=== PATIENT | female | born 1940 | race Caucasian/White ===

== ENCOUNTER 2016-04-18 14:20 | Inpatient (IN) | payer MEDICARE ==
[~2016-04-18] VITALS: Ht 162.6 cm; Wt 74.1 kg
[~2016-04-18 14:20] MED LIST: ALBU1AER5 INH; ASPI81TA81 PO; LOSA100T3 PO; POTA10TA8 PO; PRAV20TA2 PO; PRESCAP5 PO; SYST0.4D2; TIOT1AER2 INH; TRAV0.00 EACH EYE
[2016-04-19] MEDS ORDERED: DILT360C12 PO (10:45)
[2016-04-19] MEDS ORDERED: ZETI10TA5 PO (10:45)
[2016-04-26] VITALS (7 sets, daily range): BP systolic 82–155; BP diastolic 22–70; PULSE 50–76; RESP 18–24; TEMP 97.5–98.1; O2SAT 92–97
[2016-04-26] MEDS ORDERED: BUPIVACAINE LIPOSO PF 1.3% INJ 20 ML, DEXAMETHASONE INJ 4 MG in SODIUM CHLORIDE 0.9% IN... PERIART SCH (07:45)
[2016-04-26] MEDS: LACTATED RINGER'S 1000 ML IV SCH (08:00)
[2016-04-26] MEDS: SODIUM CHLORID 0.9% 500 ML IV SCH (08:00)
[2016-04-26] MEDS ORDERED: ceFAZolin 2 GM PREMIX 50 ML ONE (08:01)
[2016-04-26] MEDS ORDERED: APREPITANT 40 MG CAP ONE (08:03)
[2016-04-26] MEDS ORDERED: FAMOTIDINE 20 MG/2 ML VIAL ONE (08:03)
[2016-04-26] MEDS ORDERED: ARTIFICIAL TEARS OPTH OINT 3.5 APPLIC/3.5 GM TUBO ONE (08:03)
[2016-04-26] MEDS ORDERED: MIDAZOLAM HCL 2 MG/2 ML VIAL ONE (08:03)
[2016-04-26] MEDS ORDERED: INSULIN HUMAN REGULAR 1,000 UNITS/10 ML VIAL SQ PRN (08:30)
[2016-04-26] MEDS ORDERED: ONDANSETRON HCL 4 MG/2 ML VIAL IV PUSH ONE (09:46)
[2016-04-26] MEDS ORDERED: LACTATED RINGER'S 1000 ML INJ 1,000 ML IV ONE (09:46)
[2016-04-26] MEDS ORDERED: ePHEDrine/NS 25 MG/5 ML SYR IV ONE (09:46)
[2016-04-26] MEDS ORDERED: NORMOSOL R INJ 1,000 ML IV ONE (09:46)
[2016-04-26] MEDS ORDERED: NEOSTIGMINE 3 MG/3 ML SYR IV ONE (09:46)
[2016-04-26] MEDS ORDERED: SODIUM CHLORID 0.9% 500 ML INJ 500 ML IV ONE (09:46)
[2016-04-26] MEDS ORDERED: PROPOFOL 200 MG/20 ML AMP IV ONE (09:46)
[2016-04-26] MEDS ORDERED: SODIUM CHLORIDE 0.9% FLUSH 5 ML FLUSH IV FLUSH PRN (10:30)
[2016-04-26] MEDS ORDERED: ACETAMINOPHEN/HYDROcodone 325 MG/5 MG TAB PO PRN (10:30)
[2016-04-26] MEDS ORDERED: Post-op Orders (for Pharmacy) MISC OTHER ONE (10:30)
[2016-04-26] MEDS ORDERED: ACETAMINOPHEN 325 MG TAB PO PRN (10:30)
[2016-04-26] MEDS ORDERED: RESP: ALBUTEROL 2.5 MG/3 ML NEB (PRN) NEB (10:30)
[2016-04-26] MEDS ORDERED: MAGNESIUM HYDROXIDE SUSP 30 ML CUP PO PRN (10:30)
[2016-04-26] MEDS ORDERED: ONDANSETRON HCL 4 MG/2 ML VIAL IV PUSH PRN (10:30)
[2016-04-26] MEDS ORDERED: DO NOT ADM ANY ANTICOAGULANT DRUGS XX PRN (10:39)
[2016-04-26] MEDS ORDERED: fentaNYL CITRATE 250 MCG/5 ML AMP ONE (10:42)
[2016-04-26] MEDS ORDERED: *morphine SULFATE 8 MG/ML PERIprocedure ONLY ONE (10:47)
[2016-04-26] MEDS ORDERED: ACETAMINOPHEN 1000 MG/100 ML VIAL IV SCH (11:00)
[2016-04-26] MEDS ORDERED: *RESP: ALBUTEROL 2.5 MG/3 ML NEB (PRN) PERIprocedural Use ONLY NEB ONE (11:01)
[2016-04-26] MEDS: KETOROLAC TROMETHAMINE 30 MG/ML (IVP) VIAL IV PUSH SCH ×3 (11:10→23:39)
--- NOTE | 2016-04-26 11:36 | RADRPT ---
EXAM DATE/TIME: 04/26/2016 10:50 [facility] COMPARISON: CT NEEDLE BIOPSY LUNG, RIGHT, February 16, 2016, 9:00. INDICATIONS : Post right thorocotomy. MEDICAL HISTORY : None. SURGICAL HISTORY : Right thoracotomy ENCOUNTER: Initial ACUITY: 1 day PAIN SCORE: Non-responsive. LOCATION: Right chest FINDINGS: Chest tube is in place on the right without pneumothorax. Minimal bibasilar parenchymal changes are noted. Heart is minimally enlarged. Mild subcutaneous emphysema is present over the right chest. CONCLUSION: There is no pneumothorax following thoracotomy. Jose Rand MD FACR on April 26, 2016 at 11:15 Board Certified Radiologist. This report was verified electronically.
--- NOTE | 2016-04-26 11:49 | PD.OP ---
cc: Rl Cid MD; Lizzie Mims MD; Yasmine Dickey MD; Geno Matute MD Operative Report Date of Surgery: Apr 26, 2016 Preoperative Diagnosis: Postoperative Diagnosis: Procedure: 1. Robotic Right Upper Lobe Mass Resection 2. Intercostal Nerve Block . Surgeon: Geno Matute Plant Physiologist(s): Claribel Garcia Operation and Findings: PREOPERATIVE DIAGNOSIS 1. Right Upper Lobe Lung Cancer 2. Severe COPD 3. Bullous Emphysema POSTOPERATIVE DIAGNOSIS same PROCEDURES 1. Robotic Right Upper Lobe Mass Resection 2. Intercostal Nerve Block SURGEON Geno Matute MD JAZZ SINGER JUAN J Eldridge ANESTHESIA General endotracheal. EMERGENCY MANAGER TIM Fontanez MD OPERATIVE TIME Please see record. COMPLICATIONS None. INDICATION FOR PROCEDURE The patient is a 76 yo lady with lung cancer and severe COPD presenting for sublobar resection given her severely compromised pulmonary function. DESCRIPTION OF PROCEDURE The patient was brought to the operating suite and placed in supine position. Following satisfactory induction of general endotracheal anesthesia, she was placed in the left lateral decubitus position. The right chest was then prepped and draped in the usual sterile fashion. Under direct vision, camera was introduced in the 8th ICS and insufflation was begun into the chest . Instrument arm 1& 2 were placed. Lesion was identified. The entire right lung was very emphysematous with diffuse bullous changes. Using peristrips, the lesion was isolated and resected. Specimen was bagged and removed from the chest. Again, the lung was very friable and very poor quality. Any manipulation was frought with parenchymal damage. With concern for creating unrepairable air- leaks, it was decided not to proceed with mediastinal and subcarinal lymph node dissection to avoid creating bronchopleural fistulae. A 24-Luxembourgish Tyrese drain was placed. Intercostal nerve block was performed at the level of the incision and 3 rib spaces above and below using Exparel with Decadron solution. Wounds were closed with 2-0, 3-0, and 4-0 Monocryl. The patient tolerated the procedure well and postoperatively went to recovery in stable condition. Geno Matute MD Apr 26, 2016 11:48
[2016-04-26] MEDS: ACETAMINOPHEN 1000 MG/100 ML VIAL IV SCH ×2 (13:39→20:33)
[2016-04-26] MEDS ORDERED: RESP: ALBUTEROL 2.5 MG/3 ML NEB (SCH) NEB (16:00)
[2016-04-26] MEDS ORDERED: TERBUTALINE INJ 1 MG/ML AMP SQ PRN (16:15)
[2016-04-26] MEDS ORDERED: PHENYLEPHRINE 40 MG/D5W 496 ML ADMIX IV SCH ×2 (16:15)
[2016-04-26] MEDS: ACETAMINOPHEN/HYDROcodone 325 MG/5 MG TAB PO PRN (16:48)
[2016-04-26] MEDS: DOCUSATE CALCIUM 240 MG CAP PO SCH (20:34)
[2016-04-26] MEDS: PANTOPRAZOLE SOD 40 MG DELAYED RELEASE TAB PO SCH (20:34)
[2016-04-26] MEDS: SODIUM CHLORIDE 0.9% FLUSH 5 ML FLUSH IV FLUSH SCH (20:35)
[2016-04-26] MEDS: RESP: ALBUTEROL 2.5 MG/IPRATROPIUM 0.5 MG NEB (SCH) NEB (20:49)
[2016-04-26] MEDS: LATANOPROST 0.005% OPHT SOLN 2.5 ML BTL EACH EYE SCH (20:53)
--- NOTE | 2016-04-26 22:12 | MB ---
cc: DARLEEN WEST DATE OF CONSULTATION 04/26/2016 REASON FOR CONSULTATION Postoperative pulmonary management status post wedge biopsy of lung mass. HISTORY OF THE PRESENT ILLNESS This is a 76-hour-old white female who has had a previous history for right upper lobe lung mass, had a CT biopsy following a PET scan which demonstrated uptake in the right upper lobe mass. /it was found to be a squamous cell carcinoma. The patient was sent for possible surgery but her pulmonary functions were borderline with an FEV-1 of under one liter. She was then advised to have a wedge resection of the density. The patient did undergo surgery today with wedge dissection of the right upper lobe lung mass and intercostal nerve block. She was placed in the intensive care unit on oxygen via nasal cannula at 4 liters. She is awake and cooperative, complains of little soreness in the chest, but not dyspneic at rest. PAST MEDICAL HISTORY The past history has included: 1. A history of hypertension. 2. History of glaucoma. 3. History of lipoma. 4. There is a history of abdominal aortic aneurysm. 5. Chronic vertigo with a TIA. PAST SURGICAL HISTORY Surgery includes: 1. Finger surgery. 2. Humeral surgery. 3. Cholecystectomy. 4. Lung biopsy. 5. Remote history of D & C. 6. Tonsillectomy. ALLERGIES INCLUDE PRAVASTATIN AND TIMOPTIC EYE DROPS. SOCIAL HISTORY Habits, the patient smoked cigarettes one-pack per day for over 20 years. No significant alcohol use. FAMILY HISTORY Significant for hypertension and father had a history of malignancy. REVIEW OF SYSTEMS The patient has had some weight gain. She has cough, wheezing, orthopnea. She has no leg swelling. She has joint pains of her extremities. Denies anxiety or depression. She has no history of any urinary symptoms. MEDICATIONS The med list included: 1. Pravastatin 40 mg at bedtime. 2. Spiriva two puffs daily. 3. Albuterol inhaler two puffs t.i.d. p.r.n. PHYSICAL EXAMINATION GENERAL: This elderly mild obese white female is alert and in no acute distress. VITAL SIGNS: Blood pressure 130/70, pulse is 74, respiratory rate 20, temperature 98.2. HEENT: Head is normocephalic. Pupils are reactive. Tongue is moist. Throat is injected. NECK: Supple. No bruits or thyroid enlargement. CHEST: Equal movements with distant breath sounds over the right mid and upper chest with occasionally wheezes bilaterally. HEART: Sounds are regular S1-S2. No murmur. No S3 gallop. ABDOMEN: Soft. Protuberant. No masses. No organomegaly. EXTREMITIES: No edema. Reflexes are 1+ with no gross motor deficits. NEUROLOGICAL: Cranial nerves are grossly intact. RECTAL: Examination is deferred. SKIN: No lesions. IMPRESSION 1. Status post wedge resection of right upper lobe squamous cell lung CA. 2. Bullous emphysema. 3. History of mixed hyperlipidemia. 4. History of glaucoma. 5. Hypertension. PLAN The patient will be placed on O2 at 4 liters. Maintain sats over 92. Nebulized DuoNeb solution added q.i.d. We will also get a chest x-ray in the a.m. The patient will be advised to use the incentive spirometer every two hours. Thank you Dr. Matute for this consultation. MD [facility]/DENY /5:44 PM /9:54 PM
[2016-04-27] VITALS (18 sets, daily range): BP systolic 115–149; BP diastolic 47–66; PULSE 63–98; RESP 20; TEMP 97.8–98.4; O2SAT 93–97
[2016-04-27] MEDS: SODIUM CHLORID 0.9% 500 ML IV SCH (00:40)
[2016-04-27] MEDS: ACETAMINOPHEN 1000 MG/100 ML VIAL IV SCH ×2 (02:45→09:04)
[2016-04-27] MEDS: KETOROLAC TROMETHAMINE 30 MG/ML (IVP) VIAL IV PUSH SCH (05:29)
--- NOTE | 2016-04-27 05:47 | RADRPT ---
EXAM DATE/TIME: 04/27/2016 04:18 [facility] COMPARISON: CHEST SINGLE AP, April 26, 2016, 10:50. INDICATIONS : Shortness of breath, possible pulmonary disease. MEDICAL HISTORY : None. SURGICAL HISTORY : Thoracotomy ENCOUNTER: Subsequent ACUITY: 2 days PAIN SCORE: 4/10 LOCATION: Right chest FINDINGS: There is a right chest tube in place. A pneumothorax is not seen. There is subcutaneous emphysema see n in the lower lateral right chest. There is patchy areas of consolidation in the lateral right upper lung and at the right base and to some degree at the left base. There is blunting of the left costop hrenic angle. The heart size is normal. There is a healed fracture deformity of the proximal left hum erus. CONCLUSION: 1. Right chest tube without a pneumothorax. 2. Patchy areas of consolidation at the lateral right upper lung, right base and to lesser degree lef t base. 3. Blunting of the left costophrenic angle related to a mild effusion. Bin Woo MD on April 27, 2016 at 5:44 Board Certified Radiologist. This report was verified electronically.
[2016-04-27 06:29] LABS: AUTOMATED NEUTROPHIL # 7.9 TH/MM3 (1.8-7.7); HEMATOCRIT 25.3 % (35.0-46.0); HEMO FLAGS DIFF FINAL; LYMPH % 9.1 % (9.0-44.0); LYMPHOCYTE # 0.9 TH/MM3 (1.0-4.8); MEAN CELL VOLUME 96.1 FL (80.0-100.0); MEAN CORPUSCULAR HEMOGLOBIN 33.6 PG (27.0-34.0); MONO % 6.9 % (0.0-8.0); PLATELET COUNT 163 TH/MM3 (150-450); RED BLOOD COUNT 2.64 MIL/MM3 (4.00-5.30); RED CELL DISTRIBUTION WIDTH 13.6 % (11.6-17.2); WHITE BLOOD COUNT 9.4 TH/MM3 (4.0-11.0)
[2016-04-27 06:53] LABS: BICARBONATE 25.6 MEQ/L (21.0-32.0); POTASSIUM 3.5 MEQ/L (3.5-5.1)
[2016-04-27] MEDS: LACTATED RINGER'S 1000 ML IV SCH (08:00)
[2016-04-27] MEDS: RESP: ALBUTEROL 2.5 MG/IPRATROPIUM 0.5 MG NEB (SCH) NEB ×4 (08:15→20:38)
[2016-04-27] MEDS ORDERED: SOD PHOSPHATE/SOD BIPHOSPHATE (ADULT) ENEMA 133ML RECTAL PRN (08:45)
[2016-04-27] MEDS ORDERED: BISACODYL 10 MG SUPP RECTAL PRN (08:45)
--- NOTE | 2016-04-27 08:47 | PD.CAR.PN ---
CVT Progress Note CVT: POD #: 1 Subjective/Hospital Course: 76-hour-old white female who has had a previous history for right upper lobe lung mass, had a CT biopsy following a PET scan which demonstrated uptake in the right upper lobe mass. 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 The patient was sent for possible surgery but her pulmonary functions were borderline with an FEV-1 of under one liter. PMH: hypertension, glaucoma, lipoma, abdominal aortic aneurysm, Chronic vertigo with a TIA, COPD bullous emphysema surgery: Robotic Right Upper Lobe Mass Resection 04/26 04/27 remains on nasal cannula 02 sat 93% on 3 L having some breakthrough pain CXR noted some subq emphysema right lateral chest wall no PTX, chest tube to water weal / drained 200cc/ 12 hrs will transfer to stepdown unit Objective: GENERAL: SKIN: Warm and dry./ dressing to right chest wall, some ecchymosis and mild swelling to area HEAD: Normocephalic. EYES: No scleral icterus. No injection or drainage. NECK: Supple, trachea midline. No JVD or lymphadenopathy. CARDIOVASCULAR: Regular rate and rhythm without murmurs, gallops, or rubs. RESPIRATORY: diminished right lower lobe , chest tube to water seal no air leak , Breath sounds equal bilaterally. No accessory muscle use. GASTROINTESTINAL: Abdomen soft, non-tender, nondistended. MUSCULOSKELETAL: No cyanosis, or edema. BACK: Nontender without obvious deformity. No CVA tenderness. Vital Signs Date Time Temp Pulse Resp B/P Pulse Ox O2 Delivery O2 Flow Rate FiO2 04/27/16 08:16 93 Nasal Cannula 3.00 04/27/16 06:30 20 04/27/16 05:00 93 Nasal Cannula 4.00 04/27/16 04:00 93 Nasal Cannula 3.00 04/27/16 04:00 70 04/27/16 04:00 98.4 69 20 125/56 94 04/27/16 00:00 98.3 63 20 115/47 93 04/27/16 00:00 93 Nasal Cannula 3.00 04/27/16 00:00 65 04/26/16 21:05 18 04/26/16 21:00 96 Nasal Cannula 3.00 04/26/16 20:49 97 Nasal Cannula 3.00 04/26/16 20:00 95 Nasal Cannula 4.00 04/26/16 20:00 97.5 64 20 108/50 95 04/26/16 20:00 63 04/26/16 16:09 92 Nasal Cannula 4.00 04/26/16 16:09 57 04/26/16 15:29 95 Simple Mask 6.00 04/26/16 15:00 98.1 57 18 82/44 93 04/26/16 12:54 92 Simple Mask 6.00 04/26/16 12:10 88 Nasal Cannula 4.00 04/26/16 12:05 97.9 50 18 101/22 92 Arterial Line 04/26/16 12:05 52 04/26/16 11:45 97.5 55 15 94 Nasal Cannula 3 107/52 04/26/16 11:30 53 15 106/57 94 Nasal Cannula 3 04/26/16 11:15 54 15 110/45 93 Nasal Cannula 3 105/56 04/26/16 11:00 57 15 118/42 93 Nasal Cannula 3 107/54 04/26/16 10:45 60 15 128/44 92 Nasal Cannula 3 115/58 04/26/16 10:35 97.0 72 18 130/48 99 Nasal Cannula 4 116/62 Labs: Laboratory Tests Test 04/27/16 05:37 White Blood Count 9.4 TH/MM3 (4.0-11.0) Red Blood Count 2.64 MIL/MM3 (4.00-5.30) Hemoglobin 8.9 GM/DL (11.6-15.3) Hematocrit 25.3 % (35.0-46.0) Mean Corpuscular Volume 96.1 FL (80.0-100.0) Mean Corpuscular Hemoglobin 33.6 PG (27.0-34.0) Mean Corpuscular Hemoglobin 35.0 % Concent (32.0-36.0) Red Cell Distribution Width 13.6 % (11.6-17.2) Platelet Count 163 TH/MM3 (150-450) Mean Platelet Volume 7.6 FL (7.0-11.0) Neutrophils (%) (Auto) 84.0 % (16.0-70.0) Lymphocytes (%) (Auto) 9.1 % (9.0-44.0) Monocytes (%) (Auto) 6.9 % (0.0-8.0) Eosinophils (%) (Auto) 0.0 % (0.0-4.0) Basophils (%) (Auto) 0.0 % (0.0-2.0) Neutrophils # (Auto) 7.9 TH/MM3 (1.8-7.7) Lymphocytes # (Auto) 0.9 TH/MM3 (1.0-4.8) Monocytes # (Auto) 0.7 TH/MM3 (0-0.9) Eosinophils # (Auto) 0.0 TH/MM3 (0-0.4) Basophils # (Auto) 0.0 TH/MM3 (0-0.2) CBC Comment DIFF FINAL Differential Comment Sodium Level 135 MEQ/L (136-145) Potassium Level 3.5 MEQ/L (3.5-5.1) Chloride Level 100 MEQ/L (98-107) Carbon Dioxide Level 25.6 MEQ/L (21.0-32.0) Anion Gap 9 MEQ/L (5-15) Blood Urea Nitrogen 20 MG/DL (7-18) Creatinine 1.08 MG/DL (0.50-1.00) Estimat Glomerular Filtration 49 ML/MIN (>89) Rate Random Glucose 146 MG/DL (74-106) Calcium Level 8.6 MG/DL (8.5-10.1) Result Diagram: 04/27/1653604/27/16536 Telemetry: NSR (1) COPD (chronic obstructive pulmonary disease) Plan: nebs, spirivia ezpap , acapella wean 02 (2) Coronary artery disease Plan: ASA, statin (3) Squamous cell lung cancer (4) Robotic Right Upper Lobe Mass Resection Plan: await path, pulm toileting nebs, ezpap OOB ambulate nv Gavi Phipps Apr 27, 2016 08:47
[2016-04-27] MEDS ORDERED: PT OWN MED: SPIRIVA RESPIMAT 2 INH DAILY INH SCH (09:00)
[2016-04-27] MEDS ORDERED: DILTIAZEM-CD 180 MG CAP ER PO SCH (09:00)
[2016-04-27] MEDS: MULTIVITAMINS/MINERALS THERAPEUTIC TAB PO SCH (09:07)
[2016-04-27] MEDS: ASPIRIN EC 81 MG TABEC PO SCH (09:08)
[2016-04-27] MEDS: ACETAMINOPHEN/HYDROcodone 325 MG/5 MG TAB PO PRN ×2 (09:09→23:28)
[2016-04-27] MEDS: SODIUM CHLORIDE 0.9% FLUSH 5 ML FLUSH IV FLUSH SCH ×2 (09:11→20:32)
[2016-04-27] MEDS ORDERED: POTASSIUM CHLORIDE 10 MEQ CONTROLLED RELEASE TAB PO ONE (09:45)
--- NOTE | 2016-04-27 14:23 | HHI.FF ---
Face to Face Verification Diagnosis: (1) COPD (chronic obstructive pulmonary disease) (2) Coronary artery disease (3) Squamous cell lung cancer (4) Robotic Right Upper Lobe Mass Resection Home Health Nursing Order: Signs/symptoms of disease process Wound care and dressing changes Nursing assessment with vital signs Instructions: Incentive spirometry Q1 hr x 10, while awake, also use acapella device hourly whole awake Chest wall Precautions: NO pushing or pulling, ( pt must use chest pillow to support chest with all activities and with coughing Daily incision care: ok to shower daily, no tub bath. Wash all incisions with liquid dial soap, clean wash cloth to each site, rinse and pat dry. Observe for any signs of infection, such as drainage which is dark yellow, soto, green or foul smelling. Immediately report to the surgeon any drainage from the chest incision, or legs, and for any abnormal drainage from the chest tube sites. Notify surgeon if any temp >101.5 degrees F. When specialty dressing removed/ or if you do not have one, continue to shower daily as above, then rinse and pat incision dry and paint with betadine daily x 5 days. Allow steri strips to fall off if you have any. Avoid lotions, creams, salves, oils, etc. for the first month F/U appointment: as per [place] instructions: PCP in 2 weeks, CV surgeon 2 weeks, control room technician 3-4 weeks, Oncologist 3-4 weeks For any questions regarding incisions/ dressing / meds / post op care or above Symptoms, Sunday 8am-5pm Heart & Vascular Surgery Office ( Dr. Matute & Dr. Dunne), After Hours / Nights (5pm -8am) Weekends and Holidays Please call [facility]) Charge Nurse I have seen patient Ifrah Sal on 04/27/16. My clinical findings support the need for the requested home health care services because: Patient has SOB Deconditioned w/ increased weakness I certify that my clinical findings support that this patient is homebound because: Post-op weakness Gavi Moya Apr 27, 2016 14:23
--- NOTE | 2016-04-27 17:45 | HHI.PR ---
Subjective Remarks Doing well S/P wedge resection of Right lung CA. Chest X ray shows no Pneumothorax. O2 sat 95 on 2 L. Objective Vital Signs Date Time Temp Pulse Resp B/P Pulse Ox O2 Delivery O2 Flow Rate FiO2 04/27/16 15:22 83 04/27/16 15:00 83 04/27/16 15:00 98.3 83 20 123/56 94 04/27/16 12:34 98.4 86 20 119/50 93 04/27/16 12:00 86 04/27/16 12:00 94 Nasal Cannula 2.00 04/27/16 11:00 97.9 86 20 119/50 94 04/27/16 08:16 93 Nasal Cannula 3.00 04/27/16 06:30 20 04/27/16 05:00 93 Nasal Cannula 4.00 04/27/16 04:00 93 Nasal Cannula 3.00 04/27/16 04:00 70 04/27/16 04:00 98.4 69 20 125/56 94 04/27/16 00:00 98.3 63 20 115/47 93 04/27/16 00:00 93 Nasal Cannula 3.00 04/27/16 00:00 65 04/26/16 21:05 18 04/26/16 21:00 96 Nasal Cannula 3.00 04/26/16 20:49 97 Nasal Cannula 3.00 04/26/16 20:00 95 Nasal Cannula 4.00 04/26/16 20:00 97.5 64 20 108/50 95 04/26/16 20:00 63 I/O 04/26/16 04/26/16 04/26/16 04/27/16 04/27/16 04/27/16 07:00 15:00 23:00 07:00 15:00 23:00 Intake Total 1900 ml 750 ml 1398 ml 1000 ml Output Total 560 ml 640 ml 700 ml 200 ml Balance 1340 ml 110 ml 698 ml 800 ml Intake Oral 500 ml 720 ml 650 ml IV Total 100 ml 250 ml 678 ml 350 ml Other 1800 ml Output Urine Total 400 ml 150 ml 500 ml 150 ml Stool Total 0 ml Chest Tube Drainage Total 110 ml 490 ml 200 ml 50 ml Estimated Blood Loss 50 ml Result Diagram: 04/27/16 0537 04/27/16 0537 Objective Remarks GENERAL: This elderly mild obese white female is alert and in no acute distress. HEENT: Head is normocephalic. Pupils are reactive. Tongue is moist. Throat is clear. NECK: Supple. No bruits or thyroid enlargement. CHEST: Equal movements with distant breath sounds over the right mid and upper chest with occasionally wheezes bilaterally. HEART: Sounds are regular S1-S2. No murmur. No S3 gallop. ABDOMEN: Soft. Protuberant. No masses. No organomegaly. EXTREMITIES: No edema. Reflexes are 1+ with no gross motor deficits. NEUROLOGICAL: Cranial nerves are grossly intact. RECTAL: Examination is deferred. SKIN: No lesions. Assessment and Plan Assessment and Plan IMPRESSION 1. Status post wedge resection of right upper lobe squamous cell lung CA. 2. Bullous emphysema. 3. History of mixed hyperlipidemia. 4. History of glaucoma. 5. Hypertension. Plan : 1. Cont Nebs tid , with Duoneb. 2. Wean O2 , keep sat >92. 3. Cont IS q2h 4. Chest X ray in am. 5. CBC,BMP in am Frank Coley MD Apr 27, 2016 17:45
[2016-04-27] MEDS: SENNOSIDES 8.6 MG TAB PO SCH (20:33)
[2016-04-27] MEDS: DOCUSATE CALCIUM 240 MG CAP PO SCH (20:33)
[2016-04-27] MEDS: PANTOPRAZOLE SOD 40 MG DELAYED RELEASE TAB PO SCH (20:33)
[2016-04-27] MEDS: DOCUSATE SODIUM 100 MG CAP PO SCH (20:33)
[2016-04-27] MEDS: LATANOPROST 0.005% OPHT SOLN 2.5 ML BTL EACH EYE SCH (20:34)
[2016-04-28] VITALS (28 sets, daily range): BP systolic 114–143; BP diastolic 56–64; PULSE 73–103; RESP 18–24; TEMP 97.7–98.1; O2SAT 92–97
[2016-04-28] MEDS: ACETAMINOPHEN/HYDROcodone 325 MG/5 MG TAB PO PRN ×5 (04:20→23:25)
[2016-04-28 04:56] LABS: HEMATOCRIT 22.8 % (35.0-46.0); MEAN CELL VOLUME 95.6 FL (80.0-100.0); MEAN CORPUSCULAR HEMOGLOBIN 33.2 PG (27.0-34.0); MEAN CORPUSCULAR HGB CONC 34.7 % (32.0-36.0); PLATELET COUNT 134 TH/MM3 (150-450); RED BLOOD COUNT 2.38 MIL/MM3 (4.00-5.30); RED CELL DISTRIBUTION WIDTH 13.9 % (11.6-17.2); REVIEW FLAG FINAL; WHITE BLOOD COUNT 8.5 TH/MM3 (4.0-11.0)
[2016-04-28 05:13] LABS: BICARBONATE 27.2 MEQ/L (21.0-32.0); MAGNESIUM 2.2 MG/DL (1.5-2.5)
--- NOTE | 2016-04-28 05:59 | RADRPT ---
EXAM DATE/TIME: 04/28/2016 05:24 [facility] COMPARISON: CHEST SINGLE AP, April 27, 2016, 4:18. INDICATIONS : Post thoracotomy. MEDICAL HISTORY : None. SURGICAL HISTORY : Thoracotomy. ENCOUNTER: Subsequent ACUITY: 3 days PAIN SCORE: Non-responsive. LOCATION: Bilateral chest FINDINGS: Right-sided chest tube with right basilar and midlung patchy parenchymal opacity noted. Small amount of subcutaneous emphysema is present. There is cardiomegaly. Osseous structures are intact. I do not see a definite pneumothorax. CONCLUSION: No significant change has occurred. Thien Poon MD on April 28, 2016 at 5:57 Board Certified Radiologist. This report was verified electronically.
[2016-04-28] MEDS: RESP: ALBUTEROL 2.5 MG/IPRATROPIUM 0.5 MG NEB (SCH) NEB ×4 (08:00→21:26)
[2016-04-28] MEDS ORDERED: PRAVASTATIN SOD 20 MG TAB PO SCH (09:00)
[2016-04-28] MEDS: POLYETHYLENE GLYCOL 17 GM PKG PO SCH (09:00)
[2016-04-28] MEDS ORDERED: EZETIMIBE 10 MG TAB PO SCH (09:00)
[2016-04-28] MEDS: MULTIVITAMINS/MINERALS THERAPEUTIC TAB PO SCH (09:08)
[2016-04-28] MEDS: SODIUM CHLORIDE 0.9% FLUSH 5 ML FLUSH IV FLUSH SCH ×2 (09:08→19:49)
[2016-04-28] MEDS: DOCUSATE SODIUM 100 MG CAP PO SCH ×2 (09:08→19:48)
--- NOTE | 2016-04-28 11:47 | RADRPT ---
EXAM DATE/TIME: 04/28/2016 11:16 [facility] COMPARISON: CHEST SINGLE AP, April 27, 2016, 4:18. CHEST SINGLE AP, April 28, 2016, 5:24. INDICATIONS : Right chest tube removed. MEDICAL HISTORY : None. SURGICAL HISTORY : Tonsillectomy. Thoracotomy. GB removed. ENCOUNTER: Subsequent ACUITY: 3 days PAIN SCORE: 0/10 LOCATION: Right chest FINDINGS: Right chest tube removed. No definite pneumothorax. There is areas of parenchymal consolidation in th e right upper and right lower lung. The left lung remains grossly clear except for some atelectasis i n the left lung base which appears to be improving. Heart size is stable. There are no pleural effusi ons. CONCLUSION: No definite pneumothorax. Jono Syed MD on April 28, 2016 at 11:44 Board Certified Radiologist. This report was verified electronically.
--- NOTE | 2016-04-28 12:47 | HHI.PR ---
Subjective Remarks Doing well S/P wedge resection of Right lung CA. Chest X ray shows no Pneumothorax. Chest tube is out. Off O2 Objective Vital Signs Date Time Temp Pulse Resp B/P Pulse Ox O2 Delivery O2 Flow Rate FiO2 04/28/16 11:01 97 21 04/28/16 06:00 81 04/28/16 05:00 87 04/28/16 04:00 79 04/28/16 04:00 94 Nasal Cannula 2.00 04/28/16 04:00 97.7 92 18 141/64 94 04/28/16 03:00 97 04/28/16 02:00 97 04/28/16 01:00 97 04/28/16 00:00 87 04/27/16 23:30 96 Nasal Cannula 2.00 04/27/16 23:30 97.8 98 20 139/63 96 04/27/16 23:00 98 04/27/16 22:00 92 04/27/16 21:00 87 04/27/16 20:38 97 Nasal Cannula 2.00 04/27/16 20:00 85 04/27/16 20:00 96 Nasal Cannula 2.00 04/27/16 20:00 97.9 83 20 149/66 96 04/27/16 19:00 84 04/27/16 18:00 85 04/27/16 17:00 87 04/27/16 16:00 94 Nasal Cannula 2.00 04/27/16 16:00 83 04/27/16 15:22 83 04/27/16 15:00 83 04/27/16 15:00 98.3 83 20 123/56 94 I/O 04/27/16 04/27/16 04/27/16 04/28/16 04/28/16 04/28/16 07:00 15:00 23:00 07:00 15:00 23:00 Intake Total 1398 ml 1000 ml 240 ml 240 ml Output Total 700 ml 200 ml 370 ml 1220 ml Balance 698 ml 800 ml -130 ml -980 ml Intake Oral 720 ml 650 ml 240 ml 240 ml IV Total 678 ml 350 ml Output Urine Total 500 ml 150 ml 350 ml 1200 ml Stool Total 0 ml Chest Tube Drainage Total 200 ml 50 ml 20 ml 20 ml Result Diagram: 04/28/16 0358 04/28/16 0358 Objective Remarks GENERAL: This elderly mild obese white female is alert and in no acute distress. HEENT: Head is normocephalic. Pupils are reactive. Tongue is moist. Throat is clear. NECK: Supple. No bruits or thyroid enlargement. CHEST: Equal movements with distant breath sounds over the right mid and upper chest with occasional wheezes bilaterally. HEART: Sounds are regular S1-S2. No murmur. No S3 gallop. ABDOMEN: Soft. Protuberant. No masses. No organomegaly. EXTREMITIES: No edema. Reflexes are 1+ with no gross motor deficits. NEUROLOGICAL: Cranial nerves are grossly intact. RECTAL: Examination is deferred. SKIN: No lesions. Assessment and Plan Assessment and Plan IMPRESSION 1. Status post wedge resection of right upper lobe squamous cell lung CA. 2. Bullous emphysema. 3. History of mixed hyperlipidemia. 4. History of glaucoma. 5. Hypertension. Plan : 1. Cont Nebs tid , with Duoneb. 2. Wean O2 , keep sat >92. 3. Cont IS q2h 4. Home soon. 5. Will arrange nebs for home . Frank Coley MD Apr 28, 2016 12:47
[2016-04-28] MEDS: FERROUS SULFATE 325 MG (65 MG ELEMENTAL IRON) TAB PO SCH ×2 (14:59→17:00)
[2016-04-28] MEDS: LOSARTAN 50 MG TAB PO SCH (14:59)
[2016-04-28] MEDS: HYDROCHLOROTHIAZIDE 12.5 MG CAP PO SCH (14:59)
--- NOTE | 2016-04-28 15:20 | PD.CAR.PN ---
CVT Progress Note CVT: POD #: 2 Subjective/Hospital Course: 76-hour-old white female who has had a previous history for right upper lobe lung mass, had a CT biopsy following a PET scan which demonstrated uptake in the right upper lobe mass. 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 The patient was sent for possible surgery but her pulmonary functions were borderline with an FEV-1 of under one liter. PMH: hypertension, glaucoma, lipoma, abdominal aortic aneurysm, Chronic vertigo with a TIA, COPD bullous emphysema surgery: Robotic Right Upper Lobe Mass Resection 04/26 04/27 remains on nasal cannula 02 sat 93% on 3 L having some breakthrough pain CXR noted some subq emphysema right lateral chest wall no PTX, chest tube to water weal / drained 200cc/ 12 hrs will transfer to stepdown unit 04/28 chest tube removed without difficulty / post CXR without PTX 6 min walk test done, 02 sat 96% on room air Dr Coley to [facility]lee for home nebulizer unit dc pt in am Objective: Vital Signs Date Time Temp Pulse Resp B/P Pulse Ox O2 Delivery O2 Flow Rate FiO2 04/28/16 14:01 103 04/28/16 13:00 96 04/28/16 12:01 94 Room Air 04/28/16 12:00 90 04/28/16 11:01 97 21 04/28/16 11:01 98.1 92 24 126/59 92 04/28/16 11:00 97.9 92 20 143/64 96 04/28/16 11:00 79 04/28/16 10:00 80 04/28/16 09:00 79 04/28/16 08:45 96 Nasal Cannula 2.00 04/28/16 08:45 98.1 92 24 126/59 92 04/28/16 08:00 73 04/28/16 07:00 87 04/28/16 06:00 81 04/28/16 05:00 87 04/28/16 04:00 79 04/28/16 04:00 94 Nasal Cannula 2.00 04/28/16 04:00 97.7 92 18 141/64 94 04/28/16 03:00 97 04/28/16 02:00 97 04/28/16 01:00 97 04/28/16 00:00 87 04/27/16 23:30 96 Nasal Cannula 2.00 04/27/16 23:30 97.8 98 20 139/63 96 04/27/16 23:00 98 04/27/16 22:00 92 04/27/16 21:00 87 04/27/16 20:38 97 Nasal Cannula 2.00 04/27/16 20:00 85 04/27/16 20:00 96 Nasal Cannula 2.00 04/27/16 20:00 97.9 83 20 149/66 96 04/27/16 19:00 84 04/27/16 18:00 85 04/27/16 17:00 87 04/27/16 16:00 94 Nasal Cannula 2.00 04/27/16 16:00 83 04/27/16 15:22 83 Labs: Laboratory Tests Test 04/28/16 03:58 White Blood Count 8.5 TH/MM3 (4.0-11.0) Red Blood Count 2.38 MIL/MM3 (4.00-5.30) Hemoglobin 7.9 GM/DL (11.6-15.3) Hematocrit 22.8 % (35.0-46.0) Mean Corpuscular Volume 95.6 FL (80.0-100.0) Mean Corpuscular Hemoglobin 33.2 PG (27.0-34.0) Mean Corpuscular Hemoglobin 34.7 % Concent (32.0-36.0) Red Cell Distribution Width 13.9 % (11.6-17.2) Platelet Count 134 TH/MM3 (150-450) Mean Platelet Volume 7.3 FL (7.0-11.0) Sodium Level 139 MEQ/L (136-145) Potassium Level 4.0 MEQ/L (3.5-5.1) Chloride Level 104 MEQ/L (98-107) Carbon Dioxide Level 27.2 MEQ/L (21.0-32.0) Anion Gap 8 MEQ/L (5-15) Blood Urea Nitrogen 28 MG/DL (7-18) Creatinine 0.81 MG/DL (0.50-1.00) Estimat Glomerular Filtration 69 ML/MIN (>89) Rate Random Glucose 110 MG/DL (74-106) Calcium Level 9.0 MG/DL (8.5-10.1) Magnesium Level 2.2 MG/DL (1.5-2.5) Result Diagram: 04/28/1635704/28/16357 Telemetry: NSR (1) COPD (chronic obstructive pulmonary disease) Plan: nebs, spirivia ezpap , acapella wean 02 (2) Coronary artery disease Plan: ASA, statin (3) Squamous cell lung cancer (4) Robotic Right Upper Lobe Mass Resection Plan: path visceral pleura invasion pT2a,pNX,pMX will need f/u with oncology pulm toileting nebs, ezpap OOB ambulate chest tube dc without difficulty will dc in am Gavi Moya Apr 28, 2016 15:20
--- NOTE | 2016-04-28 15:47 | HHI.DS ---
Discharge Summary Admission Date Apr 26, 2016 at 06:50 Discharge Date: Apr 29, 2016 Admitting Diagnosis 04/28 1. Right Upper Lobe Lung Cancer 2. Severe COPD 3. Bullous Emphysema (1) COPD (chronic obstructive pulmonary disease) Diagnosis: Principal (2) Squamous cell lung cancer Diagnosis: Principal (3) Robotic Right Upper Lobe Mass Resection Diagnosis: Secondary Procedures 1. Robotic Right Upper Lobe Mass Resection 04/26 2. Intercostal Nerve Block Brief History 76-hour-old white female who has had a previous history for right upper lobe lung mass, had a CT biopsy following a PET scan which demonstrated uptake in the right upper lobe mass. 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 The patient was sent for possible surgery but her pulmonary functions were borderline with an FEV-1 of under one liter. PMH: hypertension, glaucoma, lipoma, abdominal aortic aneurysm, Chronic vertigo with a TIA, COPD bullous emphysema surgery: Robotic Right Upper Lobe Mass Resection 04/26 CBC/BMP: 04/28/16 0358 04/28/16 0358 Significant Findings Laboratory Tests Test 04/27/16 04/28/16 05:37 03:58 Red Blood Count 2.64 MIL/MM3 2.38 MIL/MM3 (4.00-5.30) (4.00-5.30) Hemoglobin 8.9 GM/DL 7.9 GM/DL (11.6-15.3) (11.6-15.3) Hematocrit 25.3 % 22.8 % (35.0-46.0) (35.0-46.0) Neutrophils (%) (Auto) 84.0 % (16.0-70.0) Neutrophils # (Auto) 7.9 TH/MM3 (1.8-7.7) Lymphocytes # (Auto) 0.9 TH/MM3 (1.0-4.8) Sodium Level 135 MEQ/L (136-145) Blood Urea Nitrogen 20 MG/DL (7-18) 28 MG/DL (7-18) Creatinine 1.08 MG/DL (0.50-1.00) Estimat Glomerular Filtration 49 ML/MIN (>89) 69 ML/MIN (>89) Rate Random Glucose 146 MG/DL 110 MG/DL (74-106) (74-106) Platelet Count 134 TH/MM3 (150-450) Imaging Last Impressions Chest X-Ray 04/28/16 0500 Signed Impressions: Service Date/Time: Thursday, April 28, 2016 05:24 - CONCLUSION: No significant change has occurred. 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 EYES: No scleral icterus. No injection or drainage. NECK: Supple, trachea midline. No JVD or lymphadenopathy. CARDIOVASCULAR: Regular rate and rhythm without murmurs, gallops, or rubs. RESPIRATORY: Breath sounds equal bilaterally. No accessory muscle use. GASTROINTESTINAL: Abdomen soft, non-tender, nondistended. MUSCULOSKELETAL: No cyanosis, or edema. BACK: Nontender without obvious deformity. No CVA tenderness. Hospital Course 04/27 remains on nasal cannula 02 sat 93% on 3 L having some breakthrough pain CXR noted some subq emphysema right lateral chest wall no PTX, chest tube to water weal / drained 200cc/ 12 hrs will transfer to stepdown unit 04/28 on room air path report discussed with opt pT2a, pNX, pMX visceral pleural invasion / squamous cell carcinoma chest tube dc without difficulty post cxr stable/ no PTX Pt Condition on Discharge: Good Discharge Disposition: Disch w/ Home Health Serv Discharge Instructions DIET: Follow Instructions for: Heart Healthy Diet Activities you can perform: Shower Only-No Bath Activities to avoid: Strenuous Activity, Driving Additional Activity Instructio: no lifting >8 lbs or gallon of milk x 2 weeks Follow up Referrals: PCP Follow-up with [facility] with [facility] Continued Medications: Albuterol Powder Inh (Proair Respiclick Inh) 90 Mcg/Act Aerp 2 PUFF INH DAILY PRN SHORTNESS OF BREATH #1 Ref [address] (Aspir-81) 81 Mg Tabdr 81 MG PO EVERY OTHER DAY Diltiazem CD 24 HR (Diltiazem CD 24 HR) 360 Mg Capcr 360 MG PO DAILY #30 Ref 0 CAP Ezetimibe (Zetia) 10 Mg Tab 10 MG PO EVERY OTHER DAY #30 Ref 0 TAB Losartan-Hydrochlorothiazide (Losartan-Hydrochlorothiazide) 100-12.5 Mg Tab 1 TAB PO DAILY Blood Pressure Management #30 Ref 0 TAB Multiple Vitamins W/ Minerals (Preservision Areds 2) 1 Cap 1 CAP PO DAILY Nutritional Supplement Ref 0 CAP Polyethylene Glycol-Propylene Opth (Systane Gel Opth) 0.4-0.3% Drops Potassium Chloride ER (Potassium Chloride CR) 10 Meq Tab 10 MEQ PO DAILY TAB Pravastatin (Pravastatin) 20 Mg Tab 20 MG PO EVERY OTHER DAY Cholesterol Management #30 Ref 0 TAB Tiotropium Inh (Spiriva Respimat Inh) 1.25 Mcg/Act Aero 2 PUFF INH DAILY 1.25 mcg = 1 inhalation Asthma Management #1 Ref 0 INHALER Travoprost Opth Drops (Travatan Z Opth Drops) 0.004 % Soln 1 DROP EACH EYE HS Glaucoma #1 Ref 0 BOTTLE Gavi Moya Apr 28, 2016 15:47
[2016-04-28] MEDS: DOCUSATE CALCIUM 240 MG CAP PO SCH (19:49)
[2016-04-28] MEDS: PANTOPRAZOLE SOD 40 MG DELAYED RELEASE TAB PO SCH (19:49)
[2016-04-28] MEDS: SENNOSIDES 8.6 MG TAB PO SCH (19:49)
[2016-04-28] MEDS: LATANOPROST 0.005% OPHT SOLN 2.5 ML BTL EACH EYE SCH (19:50)
[2016-04-29] VITALS (11 sets, daily range): BP systolic 112–129; BP diastolic 52–59; PULSE 80–96; RESP 20–22; TEMP 97.3–98.2; O2SAT 92–95
[2016-04-29] MEDS: ACETAMINOPHEN/HYDROcodone 325 MG/5 MG TAB PO PRN (03:43)
--- NOTE | 2016-04-29 04:41 | RADRPT ---
EXAM DATE/TIME: 04/29/2016 04:03 [facility] COMPARISON: CHEST SINGLE AP, April 28, 2016, 11:16. INDICATIONS : Shortness of breath, possible pulmonary disease. MEDICAL HISTORY : None. SURGICAL HISTORY : Tonsillectomy. Cholecystectomy. Thoracotomy ENCOUNTER: Subsequent ACUITY: 4 - 6 days PAIN SCORE: 0/10 LOCATION: Bilateral chest FINDINGS: Increasing subcutaneous emphysema along the right chest and neck identified. A small left effusion is suspected. Right midlung nodule and basilar parenchymal density stable. I do not see a pneumothorax. CONCLUSION: Increasing subcutaneous emphysema along the right hemithorax. Thien Poon MD on April 29, 2016 at 4:39 Board Certified Radiologist. This report was verified electronically.
[2016-04-29] MEDS: RESP: ALBUTEROL 2.5 MG/IPRATROPIUM 0.5 MG NEB (SCH) NEB (07:41)
[2016-04-29] MEDS: DOCUSATE SODIUM 100 MG CAP PO SCH (09:00)
[2016-04-29] MEDS: POLYETHYLENE GLYCOL 17 GM PKG PO SCH (09:00)
[2016-04-29] MEDS: MULTIVITAMINS/MINERALS THERAPEUTIC TAB PO SCH (09:15)
[2016-04-29] MEDS: LOSARTAN 50 MG TAB PO SCH (09:15)
[2016-04-29] MEDS: HYDROCHLOROTHIAZIDE 12.5 MG CAP PO SCH (09:15)
[2016-04-29] MEDS: ASPIRIN EC 81 MG TABEC PO SCH (09:15)
[2016-04-29] MEDS: SODIUM CHLORIDE 0.9% FLUSH 5 ML FLUSH IV FLUSH SCH (09:16)
== END 2016-04-29 10:04 | disposition home health service (06) | DRG 168 ==
LOC: HSDI 04-26 06:50 → HCVR 04-26 12:08 → HCPC 04-27 14:44
PROVIDERS: ADMIT Thoracic Surgery (Cardiothoracic Vascular Surgery); ATTEND Thoracic Surgery (Cardiothoracic Vascular Surgery)
PROC: 8E0W4CZ Robotic Assisted Procedure of Trunk Region, Percutaneous Endoscopic Approach (ICD-10-PCS; 2016-04-26)
PROC: 3E0T3CZ (ICD-10-PCS; 2016-04-26)
PROC: 0BBC4ZX Excision of Right Upper Lung Lobe, Percutaneous Endoscopic Approach, Diagnostic (ICD-10-PCS; principal; 2016-04-26 08:05)
DX: C34.11 Malignant neoplasm of upper lobe, right bronchus or lung (principal); J44.9 Chronic obstructive pulmonary disease, unspecified; I10 Essential (primary) hypertension; H40.9 Unspecified glaucoma; E78.2 Mixed hyperlipidemia; I71.4 Abdominal aortic aneurysm, without rupture; R42 Dizziness and giddiness; I25.10 Atherosclerotic heart disease of native coronary artery without angina pectoris; T81.82XA Emphysema (subcutaneous) resulting from a procedure, initial encounter; Z86.73 Personal history of transient ischemic attack (TIA), and cerebral infarction without residual deficits; Z87.891 Personal history of nicotine dependence
CPT/HCPCS: 71010; 80048; 83735; 85025; 85027; 86850; 86900; 86901; 88307; 94150; 94620; 94640; 94664; 94667; 94668; C9290; J0131; J0690; J1100; J1885; J2250; J2270; J2370; J2405; J2710; J3010; J7040; J7060; J7120; J7613; J8501

== ENCOUNTER → 2016-04-19 | Outpatient (CLI) | payer MEDICARE ==
[~2016-04-19] MED LIST changes: +DILT360C12 PO; +EVIS60TA PO; +TAZT300C PO; +ZETI10TA5 PO
[2016-04-19 11:42] LABS: HEMATOCRIT 37.2 % (35.0-46.0); MEAN CELL VOLUME 96.6 FL (80.0-100.0); MEAN CORPUSCULAR HEMOGLOBIN 32.9 PG (27.0-34.0); PLATELET COUNT 185 TH/MM3 (150-450); RED BLOOD COUNT 3.85 MIL/MM3 (4.00-5.30); RED CELL DISTRIBUTION WIDTH 13.6 % (11.6-17.2); REVIEW FLAG FINAL; WHITE BLOOD COUNT 3.9 TH/MM3 (4.0-11.0)
[2016-04-19 11:44] LABS: BLOOD, URINE TRACE (NEG); COMMENT (UR) CULT NOT INDICATED; CULTURE IF INDICATED CULT NOT INDICATED; GLUCOSE,URINE NEG (NEG); KETONE, URINE NEG (NEG); NITRITE,URINE NEG (NEG); SQUAMOUS EPITHELIAL CELL URINE <1 /hpf (0-5); TRANSITIONAL EPI CELLS, URINE <1 /hpf; URINE COLOR LIGHT-YELLOW (YELLW/STRAW)
[2016-04-19 11:48] LABS: APTT (PATIENT) 38.3 SEC (24.3-30.1); PROTHROMBIN TIME - PATIENT 11.1 SEC (9.8-11.6)
[2016-04-19 11:56] LABS: BICARBONATE 30.4 MEQ/L (21.0-32.0)
--- NOTE | 2016-04-20 11:37 | EKG ---
Date Performed: 04/19/2016 Time Performed: 10:32:09 PTAGE: 76 years EKG: Sinus rhythm WITH FIRST DEGREE AV BLOCK ABNORMAL ECG NO PREVIOUS TRACING DOCTOR: Harley Mcginnis Interpretating Date/Time 04/20/2016 11:36:00
== END ==
LOC: CPRE 10:01
PROVIDERS: ATTEND Thoracic Surgery (Cardiothoracic Vascular Surgery)
DX: Z01.810 Encounter for preprocedural cardiovascular examination (principal); Z01.812 Encounter for preprocedural laboratory examination; C34.91 Malignant neoplasm of unspecified part of right bronchus or lung; I44.0 Atrioventricular block, first degree
CPT/HCPCS: 36415; 80048; 81001; 85027; 85610; 85730; 93005

== ENCOUNTER 2016-06-09 10:33 | Day surgery (SDC) | payer MEDICARE ==
[~2016-06-09 10:33] MED LIST changes: -EVIS60TA PO; -TAZT300C PO
[2016-06-09 10:59] VITALS: BP 175/75; PULSE 89; RESP 20; TEMP 97.9; O2SAT 90
[2016-06-09 11:29] LABS: AUTOMATED NEUTROPHIL # 3.4 TH/MM3 (1.8-7.7); BASOPHIL % 0.7 % (0.0-2.0); EOSINOPHIL # 0.3 TH/MM3 (0-0.4); EOSINOPHIL % 4.5 % (0.0-4.0); HEMATOCRIT 35.7 % (35.0-46.0); HEMO FLAGS DIFF FINAL; LYMPH % 27.3 % (9.0-44.0); LYMPHOCYTE # 1.6 TH/MM3 (1.0-4.8); MEAN CELL VOLUME 93.7 FL (80.0-100.0); MEAN CORPUSCULAR HEMOGLOBIN 32.3 PG (27.0-34.0); MEAN CORPUSCULAR HGB CONC 34.4 % (32.0-36.0); NEUT % 58.5 % (16.0-70.0); PLATELET COUNT 219 TH/MM3 (150-450); RED BLOOD COUNT 3.81 MIL/MM3 (4.00-5.30); RED CELL DISTRIBUTION WIDTH 13.6 % (11.6-17.2); WHITE BLOOD COUNT 5.9 TH/MM3 (4.0-11.0)
[2016-06-09 11:34] LABS: APTT (PATIENT) 36.2 SEC (24.3-30.1); PROTHROMBIN TIME - PATIENT 11.2 SEC (9.8-11.6)
[2016-06-09 11:42] LABS: BICARBONATE 28.1 MEQ/L (21.0-32.0); POTASSIUM 3.1 MEQ/L (3.5-5.1)
--- NOTE | 2016-06-09 13:00 | RADRPT ---
EXAM DATE/TIME: 06/09/2016 12:53 [facility] COMPARISON: CHEST EXPIRATION ONLY, February 16, 2016, 10:30. INDICATIONS : Post thorocentesis. MEDICAL HISTORY : Chronic obstructive pulmonary disease. Carcinoma, lung. Asthma SURGICAL HISTORY : None. ENCOUNTER: Initial ACUITY: 1 day PAIN SCORE: 0/10 LOCATION: Right chest FINDINGS: A single frontal expiratory view of the chest was performed. The lungs are symmetrically aerated and clear. No evidence of pneumothorax. Mediastinal structures are in the midline. The cardio-mediastinal contours and bronchopulmonary markings are unremarkable for an expiratory exam . Osseous structures are intact. CONCLUSION: Negative for pneumothorax. Minimal consolidative process right base . Jose Rand MD FACR on June 09, 2016 at 12:57 Board Certified Radiologist. This report was verified electronically.
[2016-06-09 13:05] VITALS: BP 122/64; PULSE 70; RESP 18; TEMP 98.1; O2SAT 91
[2016-06-09 13:20] VITALS: BP 118/70; PULSE 73; RESP 18; O2SAT 91
--- NOTE | 2016-06-09 13:38 | RADRPT ---
EXAM DATE/TIME: 06/09/2016 12:31 [facility] COMPARISON: No previous studies available for comparison. INDICATIONS : Right pleural effusion. MEDICAL HISTORY : Hypertension. Chronic obstructive pulmonary disease. Aneurysm, abdominal. Glaucoma. Lung cancer. Macu lar degeneration. SURGICAL HISTORY : Cholecystectomy Tonsillectomy. ENCOUNTER: Initial ACUITY: 1 day PAIN SCORE: 0/10 LOCATION: Right chest FLUID: Total volume of 600 cc of clear, yellow fluid was removed. Fluid was discarded. Thoracentesis was therapeutic only. TECHNIQUE: 1. Ultrasound guidance for thoracentesis. 2. Thoracentesis. The risks, benefits, and alternatives to ultrasound guided thoracentesis were explained to the patien t in lay simple terms, including the risk of bleeding and infection. Written and verbal informed con sent was obtained. Appropriate area for thoracentesis was marked under ultrasound guidance with the patient in the uprig ht position. Overlying skin was prepped and draped in the usual sterile fashion and with local anest hetic, a dermatotomy was made with an 11 blade scalpel. A 6 [place] thoracentesis catheter was placed in the pleural space and fluid was removed. Catheter was then removed and a sterile dressing applie d. There were no immediate complications. The patient tolerated the procedure well and the left the ultrasound suite in stable condition. Chest radiograph is to be obtained. CONCLUSION: Uncomplicated ultrasound guided thoracentesis. Jose Rand MD FACR on June 09, 2016 at 13:36 Board Certified Radiologist. This report was verified electronically.
== END 2016-06-09 13:49 | disposition home or self-care (01) ==
LOC: HRAD 10:33 → HRIP 10:35 → HRAD 13:49
DX: J90 Pleural effusion, not elsewhere classified (principal); J44.9 Chronic obstructive pulmonary disease, unspecified; J45.909 Unspecified asthma, uncomplicated; I10 Essential (primary) hypertension; Z85.118 Personal history of other malignant neoplasm of bronchus and lung
CPT/HCPCS: 32555; 71010; 80048; 85025; 85610; 85730; C1729